=== PATIENT | female | born 1965 | race Caucasian/White ===

== ENCOUNTER → 2020-12-30 | Outpatient (CLI) | payer OTHER ==
--- NOTE | 2020-12-30 16:34 | Diagnostic Imaging Report ---
INDICATION: Routine screening. COMPARISON: No prior mammograms are available for comparison. TECHNIQUE: 2D and 3D bilateral screening mammography was performed with CAD. FINDINGS: Both breasts are heterogeneously dense, limiting the sensitivity of mammography. There are innumerable circumscribed nodular densities throughout both breasts, most consistent with cysts. The largest is in the upper slightly outer right breast approximately 4 cm from the nipple. No spiculated mass is identified. No malignant-appearing microcalcifications are seen. The axillae are unremarkable. IMPRESSION: Circumscribed densities bilaterally. The largest is in the upper and slightly outer right breast. Further evaluation of this area with ultrasound is recommended. ACR BI-RADS Category 0: Incomplete. (Needs additional imaging evaluation). Result letter will be mailed to the patient. Note: At least 10% of breast cancer is not imaged by mammography. Dictated by: Dictated on workstation # [id number]
== END ==
LOC: RAD 15:00
DX: Z12.31 Encounter for screening mammogram for malignant neoplasm of breast (principal)
CPT/HCPCS: 77063; 77067

== ENCOUNTER → 2021-01-25 | Outpatient (CLI) | payer OTHER ==
--- NOTE | 2021-01-25 14:27 | Diagnostic Imaging Report ---
INDICATION: Right breast density. COMPARISON: Screening mammogram from 12/30/2020. FINDINGS: Sonographic interrogation of the upper and outer aspect of the right breast was performed. There is a hypoechoic mass at the 10 o'clock location 6 cm from the nipple measuring 1.4 x 1.2 x 0.7 cm. This is fairly well-circumscribed. There are internal echoes but no internal vascularity. There appears to be posterior acoustic enhancement. This has features of a complex cyst. This likely accounts for the density noted mammographically. IMPRESSION: Probable complex cyst at the 10 o'clock location of the right breast 6 cm from the nipple accounting for the mammographic density. The patient should return in 6 months for a repeat right breast ultrasound to show continued stability. ACR BI-RADS Category 3: Probably benign findings. Dictated by: Dictated on workstation # [id number]
== END ==
LOC: RAD 13:15
DX: R92.2 Inconclusive mammogram (principal); E11.9 Type 2 diabetes mellitus without complications; I10 Essential (primary) hypertension

== ENCOUNTER → 2021-08-17 | Outpatient (CLI) | payer OTHER ==
--- NOTE | 2021-08-17 14:32 | Diagnostic Imaging Report ---
INDICATION: Six-month followup of right breast complex cyst. COMPARISON: Correlation is made with the prior ultrasound from 01/25/2021. FINDINGS: Sonographic interrogation of the 10 o'clock location in the right breast 6 cm from the nipple again demonstrates a complex cyst measuring 14 x 7 x 13 mm, similar to the prior study. No internal vascularity is identified. No new mass is identified. IMPRESSION: Stable complex cyst at the 10 o'clock location of the right breast 6 cm from the nipple. An additional 6 month followup is recommended to show continued stability. ACR BI-RADS Category 3: Probably benign findings. Dictated by: Dictated on workstation # [id number]
== END ==
LOC: RAD 13:30
PROVIDERS: ATTEND Obstetrics & Gynecology Maternal & Fetal Medicine
DX: N60.01 Solitary cyst of right breast (principal)